=== PATIENT | female | born 1995 | race Caucasian/White ===

== ENCOUNTER 2024-05-27 06:13 | Day surgery (SDC) | payer OTHER, SELFPAY ==
[2024-05-27] VITALS (10 sets, daily range): BP systolic 97–117; BP diastolic 55–71; BMI 35.3
[2024-05-27] MEDS: TYLENOL 1000 MG PO (06:30)
== END 2024-05-27 09:35 | disposition home or self-care (01) ==
LOC: SDS 06:13
PROVIDERS: ATTENDING PHYSICIAN Surgery; FAMILY PHYSICIAN Student in an Organized Health Care Education/Training Program
DX: K60.50 Anorectal fistula, unspecified (principal)
CPT/HCPCS: 46270